=== PATIENT | female | born 1950 | race Two or more races ===

== ENCOUNTER 2018-05-22 10:25 | Emergency (ER) | payer OTHER ==
[2018-05-22 10:34] VITALS: BMI 22.8
--- NOTE | 2018-05-22 10:50 | PDOC ---
History of Present Illness - General Chief Complaint: Chest Pain Stated Complaint: CHEST PAIN Time Seen by Provider: 05/22/18 10:49 - History of Present Illness Initial Comments: 05/22/18 11:48 68 yo F w a h/x of hyperthyroidism s/p thyroidectomy, HLD, osteoporosis is here with 3 days of L sided chest pain and L trapezius pain. She reports her chest pain does not radiate to either arm or jaw, came on at rest, and was not associated with any nausea, vomiting, or diaphoresis. She states the pain is very reproducible with palpation of her chest or trapezius. She also has had a cough for the past 2 weeks for which she was diagnosed with a URI ten days ago. She took 500 mg of tylenol this morning but it did not significantly affect her pain. She denies recent fevers, chills, or infections. Denies SOB or difficulty breathing. Denies abdominal pain, diarrhea, constipation. Denies dysuria, frequency, urgency, or flank pain. Denies any hx of cardiac or lung disease. 05/22/18 11:51 Past History - Past Medical History Allergies/Adverse Reactions: Allergies Allergy/AdvReac Type Severity Reaction Status Date / Time No Known Allergies Allergy Verified 05/22/18 10:34 Home Medications: Ambulatory Orders Alendronate Sodium [Binosto] 70 mg PO WEEKLY 05/11/18 Levothyroxine [Synthroid -] 100 mcg PO DAILY 05/11/18 Simvastatin [Zocor -] 40 mg PO HS 05/11/18 Ibuprofen 600 mg PO PRN #30 tablet 05/22/18 COPD: No Hypercholesterolemia: Yes Thyroid Disease: Yes - Suicide/Smoking/Psychosocial Hx Smoking Status: No Smoking History: Never smoked Number of Cigarettes Smoked Daily: 0 Hx Alcohol Use: No Drug/Substance Use Hx: No Substance Use Type: None Review of Systems - Review of Systems Comments:: 05/22/18 11:52 CONSTITUTIONAL: Absent: fever, chills, diaphoresis, generalized weakness, malaise, loss of appetite HEENT: Positive: Throat pain Absent: rhinorrhea, nasal congestion, throat swelling, difficulty swallowing, mouth swelling, ear pain, eye pain, visual Changes CARDIOVASCULAR: Positive: Chest pain Absent: syncope, palpitations, irregular heart rate, lightheadedness, peripheral edema RESPIRATORY: Present: Cough Absent: shortness of breath, dyspnea with exertion, orthopnea, wheezing, stridor , hemoptysis GASTROINTESTINAL: Absent: abdominal pain, abdominal distension, nausea, vomiting, diarrhea, constipation, melena, hematochezia GENITOURINARY: Absent: dysuria, frequency, urgency, hesitancy, hematuria, flank pain, genital pain MUSCULOSKELETAL: Positive: myalgia Absent: arthralgia, joint swelling SKIN: Absent: rash, itching, pallor HEMATOLOGIC/IMMUNOLOGIC: Absent: easy bleeding, easy bruising, lymphadenopathy, frequent infections ENDOCRINE: Absent: unexplained weight gain, unexplained weight loss, heat intolerance, cold intolerance NEUROLOGIC: Absent: headache, focal weakness or paresthesias, dizziness, unsteady gait, seizure, mental status changes, bladder or bowel incontinence PSYCHIATRIC: Absent: anxiety, depression, suicidal or homicidal ideation, hallucinations. *Physical Exam - Vital Signs Last Vital Signs Temp Pulse Resp BP Pulse Ox 98.0 F 75 16 132/76 97 05/22/18 10:28 05/22/18 10:28 05/22/18 10:28 05/22/18 10:28 05/22/18 10:28 - Physical Exam Comments: 05/22/18 11:54 GENERAL: Well developed, well nourished. Awake and alert. No acute distress. HEENT: Normocephalic, atraumatic. PERRLA, EOMI. No conjunctival pallor. Sclera are non- icteric. Moist mucous membranes. Oropharynx is clear. NECK: Supple. Full ROM. No JVD. No thyromegaly. No lymphadenopathy. CARDIOVASCULAR: Regular rate and rhythm. No murmurs, rubs, or gallops. Distal pulses are 2+ and symmetric. PULMONARY: No evidence of respiratory distress. Lungs clear to auscultation bilaterally. No wheezing, rales or rhonchi. ABDOMINAL: Soft. Non-tender. Non-distended. No rebound or guarding. No organomegaly. Normoactive bowel sounds. MUSCULOSKELETAL The chest and trapezius are tender to palpation. Normal range of motion at all joints. No bony deformities. No CVA tenderness. EXTREMITIES: No cyanosis. No clubbing. No edema. No calf tenderness. SKIN: Warm and dry. Normal capillary refill. No rashes. No jaundice. NEUROLOGICAL: Alert, awake, appropriate. Cranial nerves 2-12 intact. Normal speech. Gait is normal without ataxia. PSYCHIATRIC: Cooperative. Good eye contact. Appropriate mood and affect. ED Treatment Course - LABORATORY CBC & Chemistry Diagram: 05/22/18 11:28 05/22/18 11:28 Medical Decision Making - Medical Decision Making 05/22/18 11:57 68 yo F w a h/x of hyperthyroidism s/p thyroidectomy, HLD, osteoporosis is here with 3 days of reproducible chest pain, trapezius pain, and cough for ten days. This seems to be of musculoskeltal in nature. DD includes but not limited to: Costochondritis, Acs, pneumothorax, PnA, URI, fibromyalgia, osteoporotic bone fx. Will rule out ACS with EKG and Trop. Will get CXR to assess for PNA or pneumothorax Plan: Cbc, Cmp, Trop, Ekg, CXR, IVF - NS, Analgesia, re-assess. EKG not suspicious for ACS CXR doesn't show signs of PNA or pneumothorax. Trop negative, Labs otherwise unremarkable and WNL. Patient feels much better after Ibuprofen. This is likely costochondritis. Will discharge patient with advice to take ibuprofen as needed for pain control. 05/22/18 12:02 05/22/18 13:11 *DC/Admit/Observation/Transfer Diagnosis at time of Disposition: Costochondritis - Discharge Dispostion Disposition: HOME Condition at time of disposition: Improved Decision to Admit order: No - Prescriptions Prescriptions: Ibuprofen 600 mg PO PRN #30 tablet - Referrals Referrals: Kiko Pina MD [Primary Care Provider] - - Patient Instructions Printed Discharge Instructions: Costochondritis, DI for Atypical Chest Pain, DI for Costochondritis, DI for Chest Pain Additional Instructions: You came to the ER with chest pain. We did an electrocardiogram, a chest X ray, and some blood work to figure out what was causing your chest pain. We believe your pain is due to costochondritis - please see attached form for explanation of costochondritis. Take ibuprofen, motrin, or advil as needed for your chest pain. Please make sure to call your primary care doctor and follow up with him in the next 3 to 5 days to ensure your pain is getting better and you are being taken care of. Please come back to the Emergency room immediately if your pain worsens or becomes intolerable, if you develop a fever, start having severe nausea or vomiting or have any new or worsening symptoms or concerns. We are sending a prescription of Ibuprofen to your pharmacy. Please make sure to go pick it up. Thank you for coming to [facility] and we hope you feel better soon. Print Language: RUSSIAN - Post Discharge Activity
[2018-05-22] MEDS ORDERED: SODIUM CHLORIDE 0.9% 500 ML INFUS.BAG IV ONE (11:06)
[2018-05-22] MEDS ORDERED: IBUPROFEN 600 MG TABLET (FP) PO ONE ×2 (11:07→11:30)
--- NOTE | 2018-05-22 11:19 | PDOC ---
Attending Attestation - HPI HPI: 05/22/18 11:13 68y F hx s/p thyroidectomy, hl, oa presents with complaint of L sided substernal chest pain that is dull, is constant, no associated diaphoresis, n/v , non radiation. Pt endorses ccough x 10 days. was recently diagnosed with a URI at [facility]. denies abd pain, flank pain, fever/chlls, frequency, diarrhea, dysuria, sob, sweeney. Pt also notes some pain in the L trapeziu
[2018-05-22] MEDS ORDERED: MAG HYDROX/AL HYDROX/SIMETH 30 ML UNIT-DOSE CUP ONE (11:30)
[2018-05-22 12:03] LABS: BASO % 0.6 % (0-2.0); EOS % 0.8 % (0-4.5); HEMOGLOBIN 14.2 GM/dL (10.7-15.3); LYMPH % 26.4 % (8-40); MCH 29.4 pg (25.7-33.7); MCHC 33.7 g/dl (32.0-36.0); MEAN CELL VOLUME 87.2 fl (80-96); MEAN PLT VOLUME 7.4 fl (7.5-11.1); MONO % 7.9 % (3.8-10.2); NEUT % 64.3 % (42.8-82.8); PLATELET COUNT 222 K/MM3 (134-434); RBC 4.82 M/mm3 (3.60-5.2); RDW 13.2 % (11.6-15.6); WHITE BLOOD COUNT 6.2 K/mm3 (4.0-10.0)
[2018-05-22 12:14] LABS: ALBUMIN 3.8 g/dl (3.4-5.0); ALK PHOS 69 U/L (45-117); ANION GAP 7 MMOL/L (8-16); BILIRUBIN,TOTAL 0.4 mg/dL (0.2-1); BLOOD UREA NITROGEN 12 mg/dL (7-18); CALCIUM 8.9 mg/dL (8.5-10.1); CHLORIDE 109 mmol/L (98-107); CO2 28 mmol/L (21-32); CREATININE 0.8 mg/dL (0.55-1.3); GLUCOSE,RANDOM 87 mg/dL (74-106); POTASSIUM 3.8 mmol/L (3.5-5.1); SGOT/AST 17 U/L (15-37); SGPT/ALT 24 U/L (13-61); SODIUM 144 mmol/L (136-145); TOT PROT 7.2 g/dl (6.4-8.2)
[2018-05-22 13:46] VITALS: BP 111/64; PULSE 71; TEMP 98.2
--- NOTE | 2018-05-23 15:39 | EKG ---
Test Reason : Blood Pressure : / mmHG Vent. Rate : 073 BPM Atrial Rate : 073 BPM P-R Int : 114 ms QRS Dur : 094 ms QT Int : 392 ms P-R-T Axes : 057 044 068 degrees QTc Int : 431 ms NORMAL SINUS RHYTHM NONSPECIFIC ST AND T WAVE ABNORMALITY ABNORMAL ECG WHEN COMPARED WITH ECG OF 09-JUN-2013 10:00, ST NOW DEPRESSED IN INFERIOR LEADS Confirmed by MD Ken, Maycol ([id number]) on 05/23/2018 3:39:26 PM Referred By: Confirmed By:Maycol Rogers MD
== END 2018-05-22 13:47 | disposition home or self-care (01) ==
LOC: JER 10:25
PROC: 3E0337Z Introduction of Electrolytic and Water Balance Substance into Peripheral Vein, Percutaneous Approach (ICD-10-PCS; principal; 2018-05-22)
DX: M94.0 Chondrocostal junction syndrome [Tietze] (principal); E78.5 Hyperlipidemia, unspecified; E05.90 Thyrotoxicosis, unspecified without thyrotoxic crisis or storm
CPT/HCPCS: 36415; 71046-TC-FY; 80053; 82550; 84484; 85025; 93005; 93010; 99283-25

== ENCOUNTER 2019-05-03 12:40 | Emergency (ER) | payer OTHER ==
[2019-05-03 12:50] VITALS: BP 128/74; PULSE 70; TEMP 98; BMI 26.9
--- NOTE | 2019-05-03 13:31 | PDOC ---
History of Present Illness - General Chief Complaint: Respiratory Stated Complaint: CHEST CONGESTION Time Seen by Provider: 05/03/19 13:04 History Source: Patient - History of Present Illness Initial Comments: 05/03/19 14:23 Chief complaint: Congestion Patient is 68-year-old female with a history of both thyroid, elevated cholesterol who developed a sore throat earlier this week which is now gone, and now she has cough and congestion. No fever, no shortness of breath. Patient states she uses Vicks last night and she was able to sleep. Patient appears very comfortable. GENERAL/CONSTITUTIONAL: No fever, weakness. dizziness HEAD, EYES, EARS, NOSE AND THROAT: No change in vision. No ear pain or discharge. No sore throat. + Nasal congestion CARDIOVASCULAR: No chest pain RESPIRATORY: No shortness of breath, +cough GASTROINTESTINAL: No pain, nausea, vomiting, diarrhea or constipation GENITOURINARY: No dysuria MUSCULOSKELETAL: No neck or back pain SKIN: No rash NEUROLOGIC: No headache, vertigo, loss of consciousness, or loss of sensation. GENERAL: The patient is awake, alert, and fully oriented, in no acute distress. HEAD: Normal with no signs of trauma. EYES: Pupils equal, round and reactive to light, sclera anicteric, conjunctiva clear. ENT: pharynx: no erythema, no exudate, uvula midline NECK: supple CHEST: clear, nontender, rr ABD: soft, nontender BACK: no tenderness or signs of injury EXTREMITIES: Normal range of motion, no edema. NEUROLOGICAL: Normal speech, normal gait. SKIN: Warm, Dry Past History - Past Medical History Allergies/Adverse Reactions: Allergies Allergy/AdvReac Type Severity Reaction Status Date / Time No Known Allergies Allergy Verified 05/22/18 10:34 Home Medications: Ambulatory Orders Alendronate Sodium [Binosto] 70 mg PO WEEKLY 05/11/18 Levothyroxine [Synthroid -] 100 mcg PO DAILY 05/11/18 Simvastatin [Zocor -] 40 mg PO HS 05/11/18 Ibuprofen 600 mg PO PRN #30 tablet 05/22/18 COPD: No Hypercholesterolemia: Yes Thyroid Disease: Yes - Suicide/Smoking/Psychosocial Hx Smoking Status: No Smoking History: Never smoked Number of Cigarettes Smoked Daily: 0 Hx Alcohol Use: No Drug/Substance Use Hx: No Substance Use Type: None *Physical Exam - Vital Signs Last Vital Signs Temp Pulse Resp BP Pulse Ox 98.0 F 70 18 128/74 98 05/03/19 12:48 05/03/19 12:48 05/03/19 12:48 05/03/19 12:48 05/03/19 12:48 Medical Decision Making - Medical Decision Making 05/03/19 14:26 68-year-old with a history of hypothyroid, elevated cholesterol with sore throat , turning into cough and congestion. No fever. No concerning clinical findings. Patient for imaging or lab work. Patient is not wheezing, patient is not coughing with deep inspiration and this and no signs of distress. Discussed fully with patient, she can continue to use the Vicks at night to sleep and she can follow-up with her doctor this week if any other concerns but this is consistent with viral URI Discussed issues, findings, results, applicable medications and treatments and follow-up. All these were understood and all questions were answered *DC/Admit/Observation/Transfer Diagnosis at time of Disposition: Upper respiratory infection Qualifiers: URI type: unspecified viral URI Qualified Code(s): J06.9 - Acute upper respiratory infection, unspecified - Discharge Dispostion Disposition: HOME Condition at time of disposition: Stable Decision to Admit order: No - Referrals - Patient Instructions Printed Discharge Instructions: DI for Viral Upper Respiratory Infection -- Adult Additional Instructions: Drink 2-3 L of water daily Take Tylenol 650 mg every 4 hours for pain Return to the nearest ER if short of breath, unable to swallow or feeling sicker Followup with your doctor in one to 2 days - Post Discharge Activity
== END 2019-05-03 13:45 | disposition home or self-care (01) ==
LOC: JERFT 12:40
DX: J06.9 Acute upper respiratory infection, unspecified (principal); B97.89 Other viral agents as the cause of diseases classified elsewhere; E03.9 Hypothyroidism, unspecified; E78.00 Pure hypercholesterolemia, unspecified
CPT/HCPCS: 99281-25

== ENCOUNTER 2019-07-12 09:09 | Emergency (ER) | payer OTHER ==
[2019-07-12 09:25] VITALS: BP 114/66; PULSE 85; TEMP 98.1; BMI 27.1
--- NOTE | 2019-07-12 09:54 | PDOC ---
History of Present Illness - General Chief Complaint: Respiratory Stated Complaint: COUGH/HEADACHE Time Seen by Provider: 07/12/19 09:33 History Source: Patient Exam Limitations: Clinical Condition - History of Present Illness Initial Comments: 07/12/19 09:51 Patient with no significant past medical history presented with complaint of 3- day history of persistent dry cough, headache, nasal congestion, runny nose and body aches with tactile fever. Patient report tactile fever and chills as resolved today. Denies sick contacts or recent travel. Patient has not taken anything for symptoms Is this a multiple visit Asthma Patient?: No Timing/Duration: reports: other (3 days) Severity: reports: moderate Possible Cause: Yes: unknown cause Associated Symptoms: reports: chest pain/soreness, cough, headache, muscle aches , nasal congestion. denies: dizziness, lightheadedness, nasal drainage, shortness of breath, sore throat, wheezing Past History - Past Medical History Allergies/Adverse Reactions: Allergies Allergy/AdvReac Type Severity Reaction Status Date / Time No Known Allergies Allergy Verified 07/12/19 09:24 Home Medications: Ambulatory Orders Alendronate Sodium [Binosto] 70 mg PO WEEKLY 05/11/18 Levothyroxine [Synthroid -] 100 mcg PO DAILY 05/11/18 Simvastatin [Zocor -] 40 mg PO HS 05/11/18 Ibuprofen 600 mg PO PRN #30 tablet 05/22/18 Azithromycin [Zithromax 250mg Tablets -] 250 mg PO UTDICT #6 tab 07/12/19 Benzonatate [Tessalon Pearls -] 100 mg PO Q8H PRN #20 capsule 07/12/19 Ipratropium [place] 2 spray NS BID PRN #1 spray 07/12/19 Montelukast Na [Singulair -] 10 mg PO HS #7 tablet 07/12/19 COPD: No Hypercholesterolemia: Yes Thyroid Disease: Yes - Immunization History Immunization Up to Date: Yes - Psycho Social/Smoking Cessation Hx Smoking Status: No Smoking History: Never smoked Number of Cigarettes Smoked Daily: 0 Hx Alcohol Use: No Drug/Substance Use Hx: No Substance Use Type: None Review of Systems - Review of Systems Able to Perform ROS?: Yes Is the patient limited Georgian proficient: Yes Constitutional: Yes: Malaise. No: Chills, Fever, Weakness HEENTM: Yes: Symptoms Reported, Nose Congestion. No: Eye Pain, Blurred Vision, Tearing, Recent change in vision, Double Vision, Cataracts, Ear Pain, Ocular Prothesis, Ear Discharge, Nose Pain, Tinnitus, Nose Bleeding, Hearing Loss, Throat Pain, Throat Swelling, Mouth Pain, Dental Problems, Difficulty Swallowing , Mouth Swelling, Other Respiratory: Yes: Symptoms reported, See HPI, Cough. No: Orthopnea, Shortness of Breath, SOB with Exertion, SOB at Rest, Stridor, Wheezing, Productive cough, Hemoptysis, Other Cardiac (ROS): No: Symptoms Reported, See HPI, Chest Pain, Edema, Irregular Heart Rate, Lightheadedness, Palpitations, Syncope, Chest Tightness, Other ABD/GI: No: Nausea, Vomiting Musculoskeletal: No: Symptoms Reported Integumentary: No: Symptoms Reported Neurological: Yes: Symptoms reported, Headache. No: Numbness, Paresthesia, Weakness, Dizziness All Other Systems: Reviewed and Negative *Physical Exam - Vital Signs Last Vital Signs Temp Pulse Resp BP Pulse Ox 98.1 F 85 16 114/66 98 07/12/19 09:22 07/12/19 09:22 07/12/19 09:22 07/12/19 09:22 07/12/19 09:22 - Physical Exam Comments: 07/12/19 09:53 GENERAL: Well developed, well nourished. Awake and alert. No acute distress. HEENT: b/l nasal congestion. Normocephalic, atraumatic. PERRLA, EOMI. No conjunctival pallor. Sclera are non-icteric. Moist mucous membranes. Oropharynx is clear. NECK: Supple. Full ROM. CARDIOVASCULAR: Regular rate and rhythm. No murmurs, rubs, or gallops. Distal pulses are 2+ and symmetric. PULMONARY: No evidence of respiratory distress. Lungs clear to auscultation bilaterally. No wheezing, rales or rhonchi. MUSCULOSKELETAL Normal range of motion at all joints. SKIN: Warm and dry. Normal capillary refill. No rashes. No cyanosis. NEUROLOGICAL: Alert, awake, appropriate. Gait is normal without ataxia. PSYCHIATRIC: Cooperative. Good eye contact. Appropriate mood General Appearance: Yes: Nourished, Appropriately Dressed. No: Apparent Distress ED Treatment Course - RADIOLOGY Radiology Studies Ordered: Category Date Time Status CHEST PA & LAT [RAD] Stat Radiology 07/12/19 09:47 Ordered Medical Decision Making - Medical Decision Making 07/12/19 09:51 Patient with no significant past medical history presented with complaint of 3- day history of persistent dry cough, headaches, nasal congestion, runny nose and body aches with tactile fever. Patient report tactile fever and chills as resolved today. Denies sick contacts or recent travel. Patient has not taken anything for symptoms Exam significant for bilateral nasal congestion. Lungs clear to auscultation bilateral. Patient in no acute distress. Unremarkable exam. Symptoms likely viral URI with sinusitis causing headaches versus less likely pneumonia. Chest x-ray ordered to rule out pneumonia. Patient will be treated conservatively if negative chest x-rays 07/12/19 10:10 Chest x-ray shows possible early infiltrate versus mild atelectasis in lung bases. Given patient age, patient be treated empirically on Z-Nacho antibiotics with Tessalon Perles for cough with advised to increase fluid intake and follow- up with primary care. Patient stable for discharge Discharge - Discharge Information Problems reviewed: Yes Clinical Impression/Diagnosis: Cough URI (upper respiratory infection) Qualifiers: URI type: unspecified URI Qualified Code(s): J06.9 - Acute upper respiratory infection, unspecified Condition: Stable Disposition: HOME - Admission No - Additional Discharge Information Prescriptions: Azithromycin [Zithromax 250mg Tablets -] 250 mg PO UTDICT #6 tab Benzonatate [Tessalon Pearls -] 100 mg PO Q8H PRN #20 capsule PRN Reason: Cough Ipratropium [place] 2 spray NS BID PRN #1 spray PRN Reason: nasal congestion Montelukast Na [Singulair -] 10 mg PO HS #7 tablet - Follow up/Referral Referrals: Melody Meza MD [Primary Care Provider] - - Patient Discharge Instructions Patient Printed Discharge Instructions: DI for Viral Upper Respiratory Infection -- Adult Additional Instructions: Your chest x-ray is normal and shows no pneumonia. Take prescribed medication as prescribed as your symptoms likely caused by upper respiratory viral infection. Increase fluid intake. Follow-up with primary care as needed - Post Discharge Activity
== END 2019-07-12 11:18 | disposition home or self-care (01) ==
LOC: JERFT 09:09
DX: J06.9 Acute upper respiratory infection, unspecified (principal); E78.00 Pure hypercholesterolemia, unspecified; E07.9 Disorder of thyroid, unspecified
CPT/HCPCS: 71046-TC-FY; 99281-25

== ENCOUNTER 2020-05-14 10:31 | Emergency (ER) | payer OTHER ==
[2020-05-14 10:51] VITALS: BP 130/80; PULSE 72; TEMP 97.4; BMI 27.3
--- NOTE | 2020-05-14 11:12 | PDOC ---
History of Present Illness - General Chief Complaint: Sore Throat Stated Complaint: ALLERGIC REACTION(FLU SHOT) Time Seen by Provider: 05/14/20 10:54 History Source: Patient Exam Limitations: No Limitations - History of Present Illness Associated Symptoms: reports: cough, malaise. denies: chest pain, diaphoresis, fever/chills, headaches, loss of appetite, nausea/vomiting, shortness of breath, weakness Past History - Travel History Traveled outside of the country in the last 30 days: No - Medical History Allergies/Adverse Reactions: Allergies Allergy/AdvReac Type Severity Reaction Status Date / Time No Known Allergies Allergy Verified 05/14/20 10:50 Home Medications: Ambulatory Orders Alendronate Sodium [Binosto] 70 mg PO WEEKLY 05/11/18 Levothyroxine [Synthroid -] 100 mcg PO DAILY 05/11/18 Simvastatin [Zocor -] 40 mg PO HS 05/11/18 Ibuprofen 600 mg PO PRN #30 tablet 05/22/18 Azithromycin [Zithromax 250mg Tablets -] 250 mg PO UTDICT #6 tab 07/12/19 Benzonatate [Tessalon Pearls -] 100 mg PO Q8H PRN #20 capsule 07/12/19 Ipratropium [place] 2 spray NS BID PRN #1 spray 07/12/19 Montelukast Na [Singulair -] 10 mg PO HS #7 tablet 07/12/19 Benzonatate [Tessalon Pearls -] 100 mg PO TID #21 capsule 05/14/20 COPD: No Hypercholesterolemia: Yes Thyroid Disease: Yes - Immunization History Immunization Up to Date: Yes - Psycho-Social/Smoking History Smoking Status: No Smoking History: Never smoked Number of Cigarettes Smoked Daily: 0 Review of Systems - Review of Systems Constitutional: No: Chills, Fever HEENTM: Yes: Throat Pain. No: Nose Pain, Nose Congestion, Nose Bleeding, Hearing Loss, Throat Swelling Respiratory: Yes: Productive cough. No: Cough, Orthopnea, Shortness of Breath, SOB at Rest, Wheezing Cardiac (ROS): No: Chest Pain, Lightheadedness, Palpitations ABD/GI: No: Nausea, Vomiting : No: Dysuria, Discharge, Urgency, Lesions Musculoskeletal: No: Back Pain, Joint Pain, Joint Swelling, Muscle Pain, Muscle Weakness, Neck Pain, Joint Stiffness Neurological: No: Headache, Numbness, Paresthesia, Weakness, Dizziness *Physical Exam - Vital Signs Last Vital Signs Temp Pulse Resp BP Pulse Ox 97.4 F L 72 18 130/80 98 05/14/20 10:48 05/14/20 10:48 05/14/20 10:48 05/14/20 10:48 05/14/20 10:48 - Physical Exam General Appearance: Yes: Nourished HEENT: positive: EOMI, GAURI, Pharyngeal Erythema. negative: Muffled/Hoarse voice, Tonsillar Exudate, Tonsillar Erythema, Nasal Congestion, Rhinorrhea, Sinu s Tenderness Respiratory/Chest: positive: Lungs Clear, Normal Breath Sounds Cardiovascular: positive: Regular Rate, S1, S2 Gastrointestinal/Abdominal: positive: Normal Bowel Sounds, Soft Extremity: positive: Normal Capillary Refill Neurologic: positive: lmft II-XII NML intact, Fully Oriented, Alert, Normal Mood/Affect, Normal Response, Motor Strength 5/5 ED Treatment Course - RADIOLOGY Radiology Studies Ordered: Category Date Time Status CHEST PA & LAT [RAD] Stat Radiology 05/14/20 11:04 Ordered Medical Decision Making - Medical Decision Making 05/14/20 11:11 69 years old female with history of hypothyroidism presents with generalized body aches productive cough for 3 days. Patient reports symptoms started after flu vaccination was administered 2 weeks ago. Her last COVID test was negative was a month ago. She denies smoking, fever, chills, shortness of breath, recent travel or any sick contact at home. Vital signs stable in the emergency room lungs are clear. Examination consist of erythematous oropharynx. Plan Rapid strep obtained, chest x-ray and covid test sent strep negative prelim xray negative supportive measures advised, pt advised wear mask, social distancing and quarantined until results Rx for antitussive 05/14/20 12:45 05/14/20 13:00 Discharge - Discharge Information Problems reviewed: Yes Clinical Impression/Diagnosis: Cough in adult Condition: Stable Disposition: HOME - Admission No - Additional Discharge Information Prescriptions: Benzonatate [Tessalon Pearls -] 100 mg PO TID #21 capsule Prescription Drug Monitoring Program (I-STOP) results: I-STOP not reviewed - Follow up/Referral Referrals: Melody Meza MD [Primary Care Provider] - - Patient Discharge Instructions Patient Printed Discharge Instructions: Cough Additional Instructions: Your strep test was negative today. A culture was sent out you will be notified if there is any positive finding. You may take Tylenol Motrin as needed for pain, gargle with salt warm water. Your preliminary read was negative for any lung infection. If the official report differs from what we see today you will be also contacted. Your COVID test was sent and should be ready in a few days. You may give us a call back in 4 to 5 days for the result. It is important that you wear your mask at all times maintain social distancing as previously recommended by Department of Health. Return to the emergency room if you have worsening symptoms. - Post Discharge Activity
[2020-05-14 12:10] LABS: THROAT:GRP A STREP ANTIGEN Negative (Negative)
== END 2020-05-14 12:57 | disposition home or self-care (01) ==
LOC: JERFT 10:31
DX: R05 Cough (principal)
CPT/HCPCS: 71046-TC-FY; 87070; 87880; 99284-25; U0003

== ENCOUNTER 2020-11-27 19:03 | Emergency (ER) | payer OTHER ==
[2020-11-27 19:41] VITALS: BP 142/79; PULSE 80; TEMP 98.3; BMI 26.9
== END 2020-11-27 22:52 | disposition home or self-care (01) ==
LOC: JER 19:03
DX: S29.9XXA Unspecified injury of thorax, initial encounter (principal); N64.4 Mastodynia
CPT/HCPCS: 71046-TC-FY; 71111-TC-FY; 73030-TC-LT-FY; 76641-TC-LT; 99285-25

== ENCOUNTER 2021-07-30 22:07 | Emergency (ER) | payer OTHER ==
[2021-07-30 22:22] VITALS: BP 142/80; PULSE 87; TEMP 98.5; BMI 27.3
[2021-07-30] MEDS ORDERED: ACETAMINOPHEN 500 MG TABLET (FP) PO ONE (23:39)
[2021-07-30] MEDS ORDERED: ACETAMINOPHEN 325 MG TABLET (FP) ONE (23:54)
== END 2021-07-31 00:15 | disposition home or self-care (01) ==
LOC: JER 22:07
DX: S93.601A Unspecified sprain of right foot, initial encounter (principal); S99.921A Unspecified injury of right foot, initial encounter; W01.0XXA Fall on same level from slipping, tripping and stumbling without subsequent striking against object, initial encounter
CPT/HCPCS: 73610-TC-RT-FY; 73630-TC-RT-FY; 99283-25

== ENCOUNTER 2021-11-11 13:52 | Observation (INO) | payer OTHER ==
[2021-11-11 14:00] VITALS: BMI 26.9
[2021-11-11 14:46] LABS: EPI CELLS 0 /uL (0-25.1); HYALINE CASTS 0 /uL (0-3.1); URINE APPEARANCE CLEAR; URINE BACTERIA 0 /uL (0-1359); URINE BILIRUBIN NEGATIVE (NEGATIVE); URINE COLOR YELLOW; URINE GLUCOSE (UA) NEGATIVE (NEGATIVE); URINE KETONE NEGATIVE (NEGATIVE); URINE LEUK ESTERASE NEGATIVE (NEGATIVE); URINE NITRITE NEGATIVE (NEGATIVE); URINE PROTEIN NEGATIVE (NEGATIVE); URINE RBC 10 /uL (0-23.9); URINE UROBILINOGEN 0.2 mg/dL (0.2-1.0); URINE WBC 0 /uL (0-25.8)
[2021-11-11] MEDS ORDERED: PHENAZOPYRIDINE HCL 100 MG TABLET (FP) PO ONE (15:11)
[2021-11-11] MEDS ORDERED: ACETAMINOPHEN 1000 MG/100 ML BAG IVPB ONE (15:23)
[2021-11-11] MEDS ORDERED: ACETAMINOPHEN INJECTION 100 ML IVPB ONE (15:39)
[2021-11-11] MEDS ORDERED: PHENAZOPYRIDINE HCL 100 MG TABLET (FP) ONE (15:39)
[2021-11-11 15:44] LABS: BASO % 0.6 % (0-2.0); EOS % 0.2 % (0-4.5); HEMATOCRIT 45.9 % (32.4-45.2); HEMOGLOBIN 15.6 GM/dL (10.7-15.3); LYMPH % 21.3 % (8-40); MCH 29.7 pg (25.7-33.7); MEAN CELL VOLUME 87.5 fl (80-96); MEAN PLT VOLUME 7.2 fl (7.5-11.1); MONO % 7.5 % (3.8-10.2); NEUT % 70.4 % (42.8-82.8); PLATELET COUNT 247 10^3/uL (134-434); RBC 5.24 M/mm3 (3.60-5.2); RDW 13.4 % (11.6-15.6); WHITE BLOOD COUNT 5.6 K/mm3 (4.0-10.0)
[2021-11-11 15:55] LABS: ACTIVATED PTT 29.2 SECONDS (25.2-36.5); INR 0.96 (0.83-1.09)
[2021-11-11] MEDS ORDERED: SODIUM CHLORIDE 1,000 ML IV STA (15:58)
[2021-11-11 16:06] LABS: CALCIUM 9.2 mg/dL (8.5-10.1)
[2021-11-11 16:07] LABS: ALBUMIN 4.4 g/dl (3.4-5.0); BLOOD UREA NITROGEN 12.3 mg/dL (7-18); MAGNESIUM 2.4 mg/dL (1.8-2.4)
[2021-11-11 16:12] LABS: BILIRUBIN,TOTAL 0.3 mg/dL (0.2-1); TOT PROT 8.2 g/dl (6.4-8.2)
[2021-11-11 16:23] LABS: CREATININE 1.1 mg/dL (0.55-1.3)
[2021-11-11] MEDS ORDERED: LACTATED RINGERS SOLUTION 1000 ML INFUS.BAG IV ONE (18:36)
[2021-11-11 20:10] LABS: CALCIUM 8.1 mg/dL (8.5-10.1)
[2021-11-11 20:11] LABS: BLOOD UREA NITROGEN 8.6 mg/dL (7-18)
[2021-11-11 20:14] LABS: CREATININE 0.9 mg/dL (0.55-1.3)
[2021-11-12] MEDS ORDERED: ENOXAPARIN NA (PORCINE) 40 MG/0.4 ML DISP.SYRIN SQ ONE (00:18)
[2021-11-12] MEDS ORDERED: ENOXAPARIN NA (PORCINE) 60 MG/0.6 ML DISP.SYRIN SQ ONE (00:43)
[2021-11-12] MEDS ORDERED: ACETAMINOPHEN 325 MG TABLET (FP) PO PRN (01:27)
[2021-11-12] MEDS ORDERED: BISACODYL 5 MG TABLET.DR (FP) PO PRN (01:27)
[2021-11-12] MEDS: SODIUM CHLORIDE 1,000 ML IV SCH ×2 (03:00→15:35)
[2021-11-12 03:29] LABS: URINE APPEARANCE Clear; URINE BILIRUBIN Negative (NEGATIVE); URINE COLOR Yellow; URINE GLUCOSE (UA) Negative (NEGATIVE); URINE KETONE Negative (NEGATIVE); URINE LEUK ESTERASE Negative (NEGATIVE); URINE NITRITE Positive (NEGATIVE); URINE PROTEIN Negative (NEGATIVE)
[2021-11-12 03:46] LABS: EPI CELLS 2.1 /uL (0-25.1); HYALINE CASTS 0.25 /uL (0-3.1); URINE RBC 50.9 /uL (0-23.9); URINE WBC 1.1 /uL (0-25.8)
[2021-11-12] MEDS: LEVOTHYROXINE NA 88 MCG TABLET (FP) PO SCH (06:54)
[2021-11-12] MEDS: GABAPENTIN 100 MG CAPSULE PO SCH ×2 (10:13→21:28)
[2021-11-12] MEDS: ENOXAPARIN NA (PORCINE) 60 MG/0.6 ML DISP.SYRIN SQ SCH (12:15)
[2021-11-12] MEDS: ATORVASTATIN CA 20 MG TABLET (FP) PO SCH (21:27)
[2021-11-12] MEDS ORDERED: PATIENT'S OWN MEDICATION (NON-FORMULARY) (Simvastatin 40 MG Tablet) PO SCH (22:00)
[2021-11-13] MEDS: ENOXAPARIN NA (PORCINE) 60 MG/0.6 ML DISP.SYRIN SQ SCH ×2 (00:34→11:53)
[2021-11-13] MEDS: LEVOTHYROXINE NA 88 MCG TABLET (FP) PO SCH (06:09)
[2021-11-13] MEDS: SODIUM CHLORIDE 1,000 ML IV SCH (09:33)
[2021-11-13] MEDS: GABAPENTIN 100 MG CAPSULE PO SCH ×2 (09:35→21:38)
[2021-11-13 10:06] LABS: BASO % 0.8 % (0-2.0); EOS % 1.9 % (0-4.5); HEMATOCRIT 41.3 % (32.4-45.2); LYMPH % 36.7 % (8-40); MCH 29.6 pg (25.7-33.7); MCHC 33.9 g/dl (32.0-36.0); MEAN CELL VOLUME 87.2 fl (80-96); MEAN PLT VOLUME 7.7 fl (7.5-11.1); MONO % 8.3 % (3.8-10.2); NEUT % 52.3 % (42.8-82.8); PLATELET COUNT 216 10^3/uL (134-434); RBC 4.73 M/mm3 (3.60-5.2); RDW 13.3 % (11.6-15.6); WHITE BLOOD COUNT 4.1 K/mm3 (4.0-10.0)
[2021-11-13 10:42] LABS: CALCIUM 8.6 mg/dL (8.5-10.1)
[2021-11-13 10:43] LABS: BLOOD UREA NITROGEN 11.4 mg/dL (7-18)
[2021-11-13 10:47] LABS: CREATININE 0.7 mg/dL (0.55-1.3)
[2021-11-13] MEDS: ATORVASTATIN CA 20 MG TABLET (FP) PO SCH (21:38)
[2021-11-14] MEDS: ENOXAPARIN NA (PORCINE) 60 MG/0.6 ML DISP.SYRIN SQ SCH ×2 (02:39→11:18)
[2021-11-14 06:18] VITALS: BP 110/64; PULSE 57; TEMP 97.8
[2021-11-14] MEDS: LEVOTHYROXINE NA 88 MCG TABLET (FP) PO SCH (06:29)
[2021-11-14 07:32] LABS: BASO % 0.7 % (0-2.0); EOS % 2.1 % (0-4.5); HEMATOCRIT 41.3 % (32.4-45.2); HEMOGLOBIN 14.3 GM/dL (10.7-15.3); LYMPH % 37.3 % (8-40); MCH 29.9 pg (25.7-33.7); MCHC 34.5 g/dl (32.0-36.0); MEAN CELL VOLUME 86.8 fl (80-96); MONO % 9.5 % (3.8-10.2); NEUT % 50.4 % (42.8-82.8); PLATELET COUNT 209 10^3/uL (134-434); RBC 4.76 M/mm3 (3.60-5.2); RDW 13.5 % (11.6-15.6); WHITE BLOOD COUNT 4.1 K/mm3 (4.0-10.0)
[2021-11-14 08:12] LABS: BLOOD UREA NITROGEN 10.4 mg/dL (7-18); CALCIUM 8.3 mg/dL (8.5-10.1); MAGNESIUM 2.3 mg/dL (1.8-2.4)
[2021-11-14 08:16] LABS: CREATININE 0.8 mg/dL (0.55-1.3)
[2021-11-14 08:17] LABS: BILIRUBIN,TOTAL 0.5 mg/dL (0.2-1); TOT PROT 6.6 g/dl (6.4-8.2)
[2021-11-14 08:22] LABS: ALBUMIN 3.4 g/dl (3.4-5.0)
[2021-11-14] MEDS: GABAPENTIN 100 MG CAPSULE PO SCH (11:20)
[2021-11-14] MEDS ORDERED: GABAPENTIN 100 MG CAPSULE PO SCH (12:28)
[2021-11-14] MEDS ORDERED: APIXABAN 5 MG TABLET PO SCH (22:00)
== END 2021-11-14 18:00 | disposition home or self-care (01) ==
LOC: JER 13:52 → UNDOADMOB 11-12 00:06 → INTOOBSV 11-12 00:06 → JERBED 11-12 00:06 → J7W 11-12 05:20 → JERBED 11-12 05:20 → J7W 11-12 14:21
PROVIDERS: ADMIT Internal Medicine; ATTEND Nurse Practitioner Family
PROC: 3E033NZ Introduction of Analgesics, Hypnotics, Sedatives into Peripheral Vein, Percutaneous Approach (ICD-10-PCS; principal; 2021-11-12)
PROC: 3E023GC Introduction of Other Therapeutic Substance into Muscle, Percutaneous Approach (ICD-10-PCS; 2021-11-12)
PROC: 3E0337Z Introduction of Electrolytic and Water Balance Substance into Peripheral Vein, Percutaneous Approach (ICD-10-PCS; 2021-11-12)
DX: I26.99 Other pulmonary embolism without acute cor pulmonale (principal); R30.0 Dysuria; E78.5 Hyperlipidemia, unspecified; R31.9 Hematuria, unspecified; G89.29 Other chronic pain; R10.9 Unspecified abdominal pain; M81.0 Age-related osteoporosis without current pathological fracture; Z87.440 Personal history of urinary (tract) infections; Z85.850 Personal history of malignant neoplasm of thyroid; Z29.9 Encounter for prophylactic measures, unspecified
CPT/HCPCS: 36415; 71275-TC; 74177-TC; 80048; 80053; 81003; 83690; 83735; 85025; 85610; 85730; 87086; 93005; 93010; 93306-TC; 93970-TC; 96361; 96372; 96374; 99285-25; C9803; G0378; Q9967; U0003; U0005

== ENCOUNTER 2022-06-02 07:44 | Emergency (ER) | payer OTHER ==
[2022-06-02 08:03] VITALS: BP 131/83; PULSE 85; RESP 18; TEMP 98; BMI 27.3
[2022-06-02] MEDS ORDERED: guaiFENesin 200 MG/10 ML 10 ML UNIT-DOSE CUPS PO ONE (08:36)
[2022-06-02] MEDS ORDERED: guaiFENesin 200 MG/10 ML 10 ML UNIT-DOSE CUPS ONE (08:53)
[2022-06-02 09:13] LABS: EPI CELLS 11 /uL (0-25.1); HYALINE CASTS 1 /uL (0-3.1); URINE APPEARANCE CLEAR; URINE BACTERIA 20 /uL (0-1359); URINE BILIRUBIN NEGATIVE (NEGATIVE); URINE COLOR YELLOW; URINE GLUCOSE (UA) NEGATIVE (NEGATIVE); URINE KETONE TRACE (NEGATIVE); URINE LEUK ESTERASE TRACE (NEGATIVE); URINE NITRITE NEGATIVE (NEGATIVE); URINE PROTEIN TRACE (NEGATIVE); URINE RBC 165 /uL (0-23.9); URINE WBC 8 /uL (0-25.8)
[2022-06-02 09:46] LABS: THROAT:GRP A STREP NOT DETECTED (NOTDETECTED)
== END 2022-06-02 10:15 | disposition home or self-care (01) ==
LOC: JERFT 07:44 → JER 07:44 → JERFT 10:15
DX: R05.1 Acute cough (principal)
CPT/HCPCS: 0241U-QW; 71046-TC-FY; 81003; 87651; 93005; 93010; 99285-25

== ENCOUNTER 2023-09-13 14:10 | Emergency (ER) | payer OTHER ==
[2023-09-13 14:19] VITALS: RESP 20; TEMP 98.8; BMI 26.4
[2023-09-13] MEDS ORDERED: ACETAMINOPHEN 500 MG TABLET (FP) PO ONE (16:00)
[2023-09-13] MEDS ORDERED: morphine CARPU-JECT 4 MG/1 ML DISP.SYRIN IVPUSH ONE (16:08)
[2023-09-13] MEDS ORDERED: morphine SULFATE 4 MG/ML VIAL ONE (16:12)
[2023-09-13 16:38] LABS: BASO % 0.3 % (0-2.0); EOS % 0.6 % (0-4.5); HEMATOCRIT 42.3 % (32.4-45.2); HEMOGLOBIN 14.2 GM/dL (10.7-15.3); MCH 29.5 pg (25.7-33.7); MCHC 33.7 g/dl (32.0-36.0); MEAN CELL VOLUME 87.6 fl (80-96); MEAN PLT VOLUME 6.8 fl (7.5-11.1); MONO % 9.8 % (3.8-10.2); NEUT % 69.3 % (42.8-82.8); PLATELET COUNT 285 10^3/uL (134-434); RBC 4.83 M/mm3 (3.60-5.2); WHITE BLOOD COUNT 6.4 K/mm3 (4.0-10.0)
[2023-09-13 16:54] LABS: POTASSIUM 3.6 mmol/L (3.5-5.1)
[2023-09-13 16:55] LABS: CALCIUM 8.8 mg/dL (8.5-10.1)
[2023-09-13 16:56] LABS: ALBUMIN 3.2 g/dl (3.4-5.0)
[2023-09-13 16:59] LABS: CREATININE 0.7 mg/dL (0.55-1.3)
[2023-09-13 17:01] LABS: BILIRUBIN,TOTAL 0.4 mg/dL (0.2-1); TOT PROT 6.7 g/dl (6.4-8.2)
[2023-09-13] MEDS ORDERED: KETOROLAC TROMETHAMINE 15 MG/ML VIAL IVPUSH ONE (19:38)
[2023-09-13] MEDS ORDERED: KETOROLAC TROMETHAMINE 15 MG/ML VIAL ONE (20:28)
[2023-09-13 20:39] VITALS: BP 124/64; PULSE 66
[2023-09-13] MEDS ORDERED: KETOROLAC TROMETHAMINE 30 MG/1 ML VIAL ONE (20:52)
[2023-09-13] MEDS: KETOROLAC TROMETHAMINE 15 MG/ML VIAL IVPUSH ONE ×2 (20:56→21:18)
[2023-09-13] MEDS ORDERED: KETOROLAC TROMETHAMINE 30 MG/1 ML VIAL IVPUSH ONE (21:03)
== END 2023-09-13 21:31 | disposition home or self-care (01) ==
LOC: JER 14:10
PROC: 3E0333Z Introduction of Anti-inflammatory into Peripheral Vein, Percutaneous Approach (ICD-10-PCS; principal; 2023-09-13)
PROC: 3E033GC Introduction of Other Therapeutic Substance into Peripheral Vein, Percutaneous Approach (ICD-10-PCS; 2023-09-13)
DX: M54.50 Low back pain, unspecified (principal); W19.XXXA Unspecified fall, initial encounter
CPT/HCPCS: 36415; 72131-TC; 74176-TC; 80053; 85025; 99284-25